=== PATIENT | male | born 1960 ===

== ENCOUNTER 2021-03-24 10:20 | Emergency (ER) | payer OTHER ==
[~2021-03-24] VITALS: Ht 175.3 cm; Wt 99.8 kg
[2021-03-24] MEDS ORDERED: TOPROL XL100 M1 PO (10:56)
[2021-03-24] MEDS ORDERED: NORVASC5 MG PO (10:56)
[2021-03-24] MEDS ORDERED: HYDROCHLOROTH12.5 MG PO (10:57)
== END 2021-03-24 13:57 | disposition home or self-care (01) ==
LOC: ER 10:20
DX: H60.8X2 Other otitis externa, left ear (principal)

== ENCOUNTER 2023-10-13 13:24 | Outpatient (CLI) | payer OTHER ==
[~2023-10-13 13:24] MED LIST: HYDROCHLOROTH12.5 MG PO; NORVASC5 MG PO; TOPROL XL100 M1 PO
== END 2023-10-13 13:36 | disposition home or self-care (01) ==
LOC: RAD 13:24
PROVIDERS: ATTEND Internal Medicine
DX: M79.641 Pain in right hand (principal); M25.531 Pain in right wrist

== ENCOUNTER 2023-12-17 14:16 | Outpatient (CLI) | payer OTHER | END 2023-12-17 14:25 | disposition home or self-care (01) | LOC: TOM 14:16 | PROVIDERS: ATTEND Otolaryngology | DX: J32.9 Chronic sinusitis, unspecified (principal); R43.0 Anosmia ==